=== PATIENT | female | born 1955 | race Caucasian/White ===

== ENCOUNTER 2020-08-02 15:16 | Emergency (ER) | payer MEDICARE, MEDICAID ==
[2020-08-02] MEDS ORDERED: Diphtheria,Pertussis(Acell),Tetanus Vaccine 0.5 ML Syringe IM ONE (15:51)
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
[2020-08-02] MEDS ORDERED: Ibuprofen 600 MG Tab PO ONE (15:58)
== END 2020-08-02 16:40 | disposition home or self-care (01) ==
LOC: EEVIPCON 15:16 → JD.ED 15:16
DX: S51.851A Open bite of right forearm, initial encounter (principal); S30.1XXA Contusion of abdominal wall, initial encounter; S00.83XA Contusion of other part of head, initial encounter; E78.00 Pure hypercholesterolemia, unspecified; I10 Essential (primary) hypertension; J44.9 Chronic obstructive pulmonary disease, unspecified; F17.210 Nicotine dependence, cigarettes, uncomplicated; Z79.899 Other long term (current) drug therapy; Z88.0 Allergy status to penicillin; Z23 Encounter for immunization; Y04.0XXA Assault by unarmed brawl or fight, initial encounter
CPT/HCPCS: 36415; 86803; 90471; 90715; 99284; A9270; G0433; 99283

== ENCOUNTER 2022-06-17 09:43 | Day surgery (SDC) | payer MEDICARE, MEDICAID ==
[~2022-06-17 09:43] MED LIST: Lactated Ringers 1,000 ML IV SCH; Lidocaine 1%/Sod Bicarbonate in NS 8.4% 1 ML Syringe IDERM PRN; Sodium Chloride 0.9% 10 ML Syringe FLUSH PRN; Sodium Chloride 0.9% 10 ML Syringe FLUSH SCH
[2022-06-17] MEDS ORDERED: Albuterol 0.083% 2.5 MG/3 ML Neb Soln NEB ONE (10:37)
[2022-06-17] MEDS ORDERED: Propofol 200 MG/20 ML SDV ONE ×2 (12:24→12:55)
[2022-06-17] MEDS ORDERED: Midazolam 1 MG/ML 2 ML SDV ONE (12:25)
[2022-06-17] MEDS ORDERED: Ketamine 500 mg/10 ML MDV ONE (12:27)
[2022-06-17] MEDS ORDERED: Lidocaine 1% 4 ML ONE (12:53)
== END 2022-06-17 14:30 | disposition home or self-care (01) ==
LOC: JD.SDS 09:43
PROVIDERS: ATTEND Surgery
DX: D12.2 Benign neoplasm of ascending colon (principal); D12.3 Benign neoplasm of transverse colon; D12.4 Benign neoplasm of descending colon; K63.5 Polyp of colon; K29.50 Unspecified chronic gastritis without bleeding; K52.9 Noninfective gastroenteritis and colitis, unspecified; K31.A0 Gastric intestinal metaplasia, unspecified; K29.80 Duodenitis without bleeding; K31.89 Other diseases of stomach and duodenum; K57.30 Diverticulosis of large intestine without perforation or abscess without bleeding; K22.89 Other specified disease of esophagus; K64.8 Other hemorrhoids; E78.00 Pure hypercholesterolemia, unspecified; K20.90 Esophagitis, unspecified without bleeding; J44.9 Chronic obstructive pulmonary disease, unspecified; G47.00 Insomnia, unspecified; F41.9 Anxiety disorder, unspecified; F32.1 Major depressive disorder, single episode, moderate; E66.09 Other obesity due to excess calories; F17.210 Nicotine dependence, cigarettes, uncomplicated; Z79.899 Other long term (current) drug therapy; Z88.0 Allergy status to penicillin; Z91.040 Latex allergy status; Z91.048 Other nonmedicinal substance allergy status; Z80.0 Family history of malignant neoplasm of digestive organs; Z68.36 Body mass index [BMI] 36.0-36.9, adult
CPT/HCPCS: 43239; 45380; 88305; J2250; J2704; J3490; J7120; 00813; J7620-GY

== ENCOUNTER 2023-05-17 07:30 | Day surgery (SDC) | payer MEDICAID, MEDICARE ==
[~2023-05-17 07:30] MED LIST changes: +EPINEPHrine 1 MG/ML SDV ONE; -Lactated Ringers 1,000 ML IV SCH; +Lidocaine 1% 4 ML ONE; -Lidocaine 1%/Sod Bicarbonate in NS 8.4% 1 ML Syringe IDERM PRN; +Pregabalin 25 MG Cap PO SCH; +Propofol 200 MG/20 ML SDV ONE; +Ropivacaine 0.5% 5 MG/ML 30 ML SDV ONE; +fentaNYL 100 MCG/2 ML SDV ONE; +fentaNYL 250 MCG/5 ML SDV ONE; +oxyCODONE ER 10 MG TAB.ER PO SCH
[2023-05-17] MEDS: Lactated Ringers 1,000 ML IV SCH (07:30)
[2023-05-17] MEDS: Acetaminophen 325 MG Tab PO SCH (07:37)
[2023-05-17] MEDS: Clindamycin Phosphate in D5W 900 MG in Premix Bag 1 BAG IV SCH (08:23)
[2023-05-17] MEDS ORDERED: Propofol 200 MG/20 ML SDV ONE (08:40)
[2023-05-17] MEDS ORDERED: dexmedeTOMIDine HCl 200 MCG/2 ML SDV ONE (09:34)
[2023-05-17] MEDS ORDERED: Ondansetron 4 MG/2 ML SDV ONE (09:48)
[2023-05-17] MEDS: Morphine 8 MG, EPINEPHrine 0.3 MG, Cefuroxime 750 MG, Ketorolac 30 MG, Sodium Chloride ... PRN (09:52)
[2023-05-17] MEDS: Tranexamic Acid 1,000 MG/10 ML Vial ONE (09:53)
[2023-05-17] MEDS: Vancomycin 1 GM SDV ONE (09:54)
[2023-05-17] MEDS ORDERED: Ketorolac 30 MG/ML SDV ONE (10:07)
[2023-05-17] MEDS ORDERED: Dexamethasone 4 MG/ML 5 ML MDV ONE (10:10)
[2023-05-17] MEDS ORDERED: oxyCODONE 5 MG Tab PO PRN (13:42)
== END 2023-05-17 14:28 | disposition home or self-care (01) ==
LOC: JD.SDS 07:30
PROVIDERS: ATTEND Orthopaedic Surgery
DX: M17.11 Unilateral primary osteoarthritis, right knee (principal); J44.9 Chronic obstructive pulmonary disease, unspecified; E78.00 Pure hypercholesterolemia, unspecified; F41.1 Generalized anxiety disorder; F32.A Depression, unspecified; E66.9 Obesity, unspecified; Z68.37 Body mass index [BMI] 37.0-37.9, adult; Z87.891 Personal history of nicotine dependence; Z79.899 Other long term (current) drug therapy
CPT/HCPCS: 0055T; 27447; 64447; 73560; 97116; 97161; A9270; C1713; C1776; J0171; J0697; J0736; J1100; J1596; J1885; J2270; J2405; J2704; J2795; J3010; J3370; J7030; J7120; 01402; J3490